=== PATIENT | male | born 1940 | race Caucasian/White ===

== ENCOUNTER 2021-03-03 15:12 | Emergency (ER) | payer OTHER, SELFPAY ==
--- NOTE | 2021-03-03 | ECG_ITS ---
Test Reason : CHEST PAIN Blood Pressure : / mmHG Vent. 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
--- NOTE | ~2021-03-03 | XR_ITS ---
EXAMINATION: XR CHEST CLINICAL INFORMATION: Chest pain. COMPARISON: Chest radiograph done on 11/20/2006. TECHNIQUE: 2 views of the chest were obtained. FINDINGS: Mild hyperinflated lung field is present bilaterally. No focal lung mass or airspace disease. Cardiac mediastinal silhouette is within normal limit. Multilevel moderate degenerative spondylosis. No evidence of any pleural effusion or pneumothorax. Overall no significant change. XR/XR chest 2V IMPRESSION: No acute pulmonary disease.
[2021-03-03 15:17] VITALS: BP 135/84; PULSE 115; RESP 18; O2SAT 98; BMI 32.1
--- NOTE | 2021-03-03 15:39 | PC.NURSE ---
pt has large patches of erythematous rash on legs, torso and back. He reports recent tick bite, states sx started after the bite and have been present for about a week. Also reports chills but no fever
[2021-03-03 15:40] VITALS: BP 135/84; PULSE 115; RESP 18; O2SAT 98
--- NOTE | 2021-03-03 15:47 | ED_ITS ---
IMPRESSION: No acute pulmonary disease. <Candida Dolan NP - Last Filed: 03/03/21 18:21> ECG Data Attestation: I personally reviewed and interpreted this ECG as follows: <Candida Dolan NP - Last Filed: 03/03/21 18:21> ECG interpretation date: 03/03/21 <Candida Dolan NP - Last Filed: 03/03/21 18:21> ECG interpretation time: 15:30 <Candida Dolan NP - Last Filed: 03/03/21 18:21> Interpretation: sinus tachycardia with a rate of 107, normal UT, normal QRS, normal QT <NITIN Lewis Last Filed: 03/03/21 18:21> Discharge Plan Discharge Clinical Impression: Acute Lyme disease with erythema migrans lesion 5 cm or greater in diameter <Candida Dolan NP - Last Filed: 03/03/21 18:21> Patient Disposition: Home, Self-Care <Candida Dolan NP - Last Filed: 03/03/21 18:21> Instructions: Lyme Disease (ED) <Candida Dolan NP - Last Filed: 03/03/21 18:21> Additional Instructions: we have tested due for Lyme disease as well as other tick-borne illnesse s. These tests take several days to come back. We will call you if they are positive. In the meantime start the antibiotics and you need to take this for the next 21 days. Follow up with your primary care doctor for repeat testing if your initial lyme test is negtive return for fever greater than 100.4, headache, neck pain or stiffness <Candida Dolan NP - Last Filed: 03/03/21 18:21> Prescriptions: New doxycycline monohydrate 100 mg capsule 100 mg PO BID 21 Days Qty: 42 RF: 0 <Candida Dolan NP - Last Filed: 03/03/21 18:21> Referrals: Physician,Nonstaff [Primary Care Provider] - 2 days <NITIN Lewis Last Filed: 03/03/21 18:21> Interventions: ED Discharge Assessment Last Done: 03/03/21 17:19 <Candida Dolan NP - Last Filed: 03/03/21 18:21> Discharge Date/Time: 03/03/21 17:20 <Canddia Dolan NP - Last Filed: 03/03/21 18:21> HPI - Skin/Abscess/Foreign Bdy General Chief complaint: Skin/Abscess/Foreign Body <Candida Dolan NP - Last Filed: 03/03/21 18:21> Stated complaint: ?Tick bite <Candida Dolan NP - Last Filed: 03/03/21 18:21> Time Seen by Provider: 03/03/21 15:33 <Candida Dolan NP - Last Filed: 03/03/21 18:21> Source: patient <Candida Dolan NP - Last Filed: 03/03/21 18:21> Mode of arrival: ambulatory <NITIN Lewis Last Filed: 03/03/21 18:21> Limitations: no limitations <NITIN Lewis Last Filed: 03/03/21 18:21> History of Present Illness HPI narrative: 81-year-old male with a past medical history of ead-[id number] diabetes here with complaints of rash for the last 3 days. The patient tells me about 1 week ago he was outside and noticed several ticks on him after coming inside. He did remove them but then noticed the next day what appeared to be a bite on his left hand. This has since resolved. For the last 3 days he has noticed a rash on his trunk and arms and legs. He has also had chills, fatigue, joint pain and body aches. He has also had some left-sided chest tightness with no shortness of breath or cough or fever or chills or dizziness or leg swelling or pain. 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 <NITIN Lewis Last Filed: 03/03/21 18:21> Related Data Home medications: Previous Rx's Medication Instructions Recorded doxycycline monohydrate 100 mg PO BID 21 Days #42 cap 03/03/21 <NITIN Lewis Last Filed: 03/03/21 18:21> Allergies/Adverse reactions: Allergies Allergy/AdvReac Type Severity Reaction Status Date / Time No Known Allergies [NKA] Allergy Unverified 05/17/20 15:03 <Candida Dolan NP - Last Filed: 03/03/21 18:21> Review of Systems Review of Systems: Yes all other systems are reviewed and are negative <Candida Dolan NP - Last Filed: 03/03/21 18:21> Constitutional: Constitutional: Reports no additional constitutional complaints, Reports body ache(s), Reports chills, Reports fatigue, Denies fever(s), Denies headache(s) and Denies weakness <Candida Dolan NP - Last Filed: 03/03/21 18:21> Eyes: Eyes: Reports no additional eye complaints and Denies change in vision <Candida Dolan NP - Last Filed: 03/03/21 18:21> ENT: Reports system reviewed and no additional complaints, except as documented, Denies dizziness, Denies headache(s), Denies nasal congestion, Denies nasal discharge and Denies neck pain <Candida Dolan NP - Last Filed: 03/03/21 18:21> Cardiovascular: Cardiovascular: Reports no additional cardiovascular complaints, Reports chest pain, Denies leg edema and Denies dyspnea <Candida Dolan NP - Last Filed: 03/03/21 18:21> Respiratory: Respiratory: Reports no additional respiratory complaints, Denies cough and Denies dyspnea <Candida Dolan NP - Last Filed: 03/03/21 18:21> Gastrointestinal: Gastrointestinal: Reports no additional gastrointestinal complaints, Denies abdominal pain, Denies diarrhea, Denies nausea and Denies vomiting <Candida Dolan NP - Last Filed: 03/03/21 18:21> Genitourinary: Genitourinary: Denies urinary incontinence <Candida Dolan NP - Last Filed: 03/03/21 18:21> Musculoskeletal: Musculoskeletal: Reports no additional musculoskeletal complaints, Denies back pain, Reports arthralgias, Denies joint swelling, Denies neck pain, Denies numbness and Denies tingling <Candida Dolan NP - Last Filed: 03/03/21 18:21> Integumentary/Breasts: Skin/Breast: Reports system reviewed and no additional complaints, except as docu and Reports rash <Candida Dolan NP - Last Filed: 03/03/21 18:21> Neurologic: Reports system reviewed and no additional complaints, except as documented, Denies Abnormal speech present, Denies dizziness, Denies headache(s), Denies numbness, Denies tingling and Denies weakness <Candida Dolan NP - Last Filed: 03/03/21 18:21> Endocrine: Endocrine: Reports fatigue <Candida Dolan NP - Last Filed: 03/03/21 18:21> PMFSH Past Medical History Attestation statement: The following information was validated with the patient. <Candida Dolan NP - Last Filed: 03/03/21 18:21> Source: old records reviewed and nursing notes reviewed <Candida Dolan NP - Last Filed: 03/03/21 18:21> Medical History: Medical History Diabetes <Candida Dolan NP - Last Filed: 03/03/21 18:21> Surgical History: Surgical History Hx of appendectomy <Candida Dolan NP - Last Filed: 03/03/21 18:21> Social History Social History: Social History Alcohol intake: never Patient Tobacco Use Status: Never used Tobacco Use of substances other than those prescribed or required for medical reasons: No Advance Directives: No Advance Directives Information Provided: Yes <Candida Dolan NP - Last Filed: 03/03/21 18:21> Physical Exam Vital Signs: Vital Signs: Last Vital Signs Pulse 88 03/03/21 16:52 Resp 16 03/03/21 16:52 BP 140/83 H 03/03/21 16:52 Pulse Ox 99 03/03/21 16:52 Body Mass Index 32.1 <Candida Dolan NP - Last Filed: 03/03/21 18:21> Vital Signs: Last Vital Signs Pulse 88 03/03/21 16:52 Resp 16 03/03/21 16:52 BP 140/83 H 03/03/21 16:52 Pulse Ox 99 03/03/21 16:52 Body Mass Index 32.1 <LENARD Flowers - Last Filed: 03/08/21 11:42> Const: General: cooperative, healthy appearing, comfortable and no acute distress <Candida Dolan NP - Last Filed: 03/03/21 18:21> Orientation/consciousness: patient oriented x3 <Candida Dolan NP - Last Filed: 03/03/21 18:21> Limitations: no limitations <Candida Dolan NP - Last Filed: 03/03/21 18:21> HENMT: Head: Yes normal to inspection <Candida Dolan NP - Last Filed: 03/03/21 18:21> Ears: hearing grossly normal bilaterally <Candida Dolan NP - Last Filed: 03/03/21 18:21> General nose exam: Normal external nose present <Candida Dolan NP - Last Filed: 03/03/21 18:21> Face and sinus: Yes normal facial exam <Candida Dolan NP - Last Filed: 03/03/21 18:21> Mouth: Normal oral and palatal mucosa present <Candida Dolan NP - Last Filed: 03/03/21 18:21> Throat: Yes posterior oropharynx normal <Candida Dolan NP - Last Filed: 03/03/21 18:21> Eyes: General: appearance normal, both eyes and all related structures <Candida Dolan NP - Last Filed: 03/03/21 18:21> Pupils: Equal, round and reactive pupils present <Candida Dolan NP - Last Filed: 03/03/21 18:21> Neck: Neck: Yes normal visual inspection, Yes full ROM, Yes no lymphadenopathy and Yes no meningeal signs <Candida Dolan NP - Last Filed: 03/03/21 18:21> Chest: Chest palpation & inspection: normal inspection of the chest <Candida Dolan NP - Last Filed: 03/03/21 18:21> Resp: Effort & Inspection: normal respiratory effort <Candida Dolan NP - Last Filed: 03/03/21 18:21> Auscultation: clear to auscultation bilaterally <Candida Dolan NP - Last Filed: 03/03/21 18:21> Cardio: Rate: regular rate <Candida Dolan NP - Last Filed: 03/03/21 18:21> Rhythm: regular rhythm <Candida Dolan NP - Last Filed: 03/03/21 18:21> Peripheral pulses: Peripheral pulses 2+ throughout <Candida Dolan NP - Last Filed: 03/03/21 18:21> GI: Inspection: Yes normal to inspection <Candida Dolan NP - Last Filed: 03/03/21 18:21> Palpation (GI): Soft to palpation and nontender <Candida Dolan NP - Last Filed: 03/03/21 18:21> Auscultation: normal bowel sounds <Candida Dolan NP - Last Filed: 03/03/21 18:21> Back/Spine/Pelvis: Thoracic/Lumbar Spine: thoracic and lumbar spine normal to inspection <Candida Dolan NP - Last Filed: 03/03/21 18:21> Skin: Other: To the dorsal left hand there is a single central bite with surrounding erythema c/w migrans <Candida Dolan NP - Last Filed: 03/03/21 18:21> General skin exam: no rashes or lesions noted <NITIN Lewis Last F iled: 03/03/21 18:21> Neuro: General: patient oriented x3, no meningeal signs, no focal motor deficits and normal sensation to monofilament <Candida Dolan NP - Last Filed: 03/03/21 18:21> Cranial nerves: Yes Equal, round and reactive pupils present <Candida Dolan NP - Last Filed: 03/03/21 18:21> Cognition (Neuro): normal cognition <Candida Dolan NP - Last Filed: 03/03/21 18:21> Speech: No Abnormal speech present <Candida Dolan NP - Last Filed: 03/03/21 18:21> Gait exam (Neuro): Normal gait present <Candida Dolan NP - Last Filed: 03/03/21 18:21> Motor exam (neuro): 5/5 motor strength present throughout <Candida Dolan NP - Last Filed: 03/03/21 18:21> Extrem: General: Yes normal to inspection <Candida Dolan NP - Last Filed: 03/03/21 18:21> Course Course Course Narrative: 81-year-old male with past medical history of NIDDM here with complaints of rash x 3 days in the setting of recent tick bite approximately 1 week ago. Also c/o atypical chest pain x 3 days. Rash c/w with erythema migrans. Will check labs including tick panel, troponin, EKG and CXR. - labs are consistent with a mild lymphocytopenia otherwise unremarkable. Tick panel is pending. Exam is consistent with erythema migrans. Will start with course of doxycycline times [address] Giles who visualized rash and agrees with plan of care. Troponin, EKG and chest x-ray unremarkable. Atypical chest pain with symptoms greater than 72 hours with an EKG which shows no ischemic changes and a negative troponin. Less likely ACS. Considered bradycardic rhythms secondary to lyme but heart rate has been 90-100 sinus rhythm to sinus tach with no abnormalities noted. Reviewed worrisome signs and symptoms of when to return to the emergency department. Comfortable discharge home. <Candida Dolan NP - Last Filed: 03/03/21 18:21> Reevaluation(s) Reevaluation #1: Called patient 03/08 @ 11:40 am with POSITIVE LYME results. He was prescribed appropriate therapy of 21 days of doxycycline. He has a follow up with his PCP on Thursday. <LENARD Flowers - Last Filed: 03/08/21 11:42> MDM - Skin/Abscess/Foreign Bdy MDM Narrative Medical decision making narrative: Lyme disease, ACS <Candida Dolan NP - Last Filed: 03/03/21 18:21> Medical Records Attestation: I reviewed the patient's medical records. <Candida Dolan NP - Last Filed: 03/03/21 18:21> Lab Data Attestation: I reviewed the patient's lab results. <Candida Dolan NP - Last Filed: 03/03/21 18:21> Result diagrams: : 03/03/21 16:03 03/03/21 16:03 <Candida Dolan NP - Last Filed: 03/03/21 18:21> Labs: Lab Results 03/03/21 03/03/21 03/03/21 Range/Units 16:03 16:03 16:03 WBC 7.6 (4.8-10.8) X10*3/uL RBC 4.34 L (4.60-5.80) X10*6/uL Hgb 11.9 L (14.0-18.0) g/dl Hct 36.2 L (42-52) % MCV 83.4 (80-98) fL MCH 27.4 (27.0-33.0) pg MCHC 32.9 (31.0-36.0) g/dl RDW 15.5 (11.0-16.0) % Plt Count 166 (160-400) X10*3/uL MPV 10.1 (9.4-12.4) fL Immature Gran % (Auto) 1.8 H (0.0-0.4) % Neut % (Auto) 82.1 H (45-73) % Lymph % (Auto) 6.8 L (20-40) % [place] % (Auto) 7.0 (2-11) % Eos % (Auto) 1.8 (0-4) % Baso % (Auto) 0.5 (0-2) % Lymph # (Auto) 0.5 L (1.2-4.9) X10*3/uL [place] # (Auto) 0.5 (0.1-1.2) X10*3/uL Eos # (Auto) 0.1 (0.0-0.4) X10*3/uL Baso # (Auto) 0.0 (0.0-0.2) X10*3/uL Abs Immat Gran (auto) 0.14 H (0.00-0.03) X10*3/uL Absolute Neuts (auto) 6.2 (2.0-8.3) X10*3/uL Absolute Nucleated RBC 0.000 (0.0-0.012) X10*3/uL Nucleated RBC % (auto) 0.0 (0.0-0.2) /100WBC Sodium 135 (135-145) mmol/L Potassium 4.0 (3.3-5.1) mmol/L Chloride 100 (96-108) mmol/L Carbon Dioxide 20 L (22-29) mmol/L Anion Gap 19 (12-20) BUN 8 L (9-16) mg/dL Creatinine 0.87 (0.5-1.4) mg/dL Estim Creat Clear Calc 80.4 Estimated GFR > 60 Random Glucose 230 H (60-115) mg/dL Calcium 9.2 (8.4-10.2) mg/dL Magnesium 1.7 (1.6-2.6) mg/dL Total Bilirubin 1.6 H (0.0-1.0) mg/dL Direct Bilirubin 0.7 H (0.0-0.5) mg/dL AST 18 (5-37) U/L ALT 45 H (0-40) U/L Alkaline Phosphatase 92 (39-117) U/L Troponin I High Sens < 3.5 (<3.5-35.0) ng/L Total Protein 6.7 (6.5-8.0) g/dL Albumin 3.9 (3.5-5.0) g/dL Lyme Screen IgG & IgM Lyme Progressive Test index Lyme IgG 18 kDa Band Lyme IgG 23 kDa Band Lyme IgG 28 kDa Band Lyme IgG 30 kDa Band Lyme IgG 45 kDa Band Lyme IgG 58 kDa Band Lyme IgG 66 kDa Band Lyme IgG 93 kDa Band Lyme IgG Ab (Immblot) (NEGATIVE) Lyme IgM 23 kDa Band Lyme IgM 39 kDa Band Lyme IgM 41 kDa Band Lyme IgM Interpretaton (NEGATIVE) 03/03/21 Range/Units 16:03 WBC (4.8-10.8) X10*3/uL RBC (4.60-5.80) X10*6/uL Hgb (14.0-18.0) g/dl Hct (42-52) % MCV (80-98) fL MCH (27.0-33.0) pg MCHC (31.0-36.0) g/dl RDW (11.0-16.0) % Plt Count (160-400) X10*3/uL MPV (9.4-12.4) fL Immature Gran % (Auto) (0.0-0.4) % Neut % (Auto) (45-73) % Lymph % (Auto) (20-40) % [place] % (Auto) (2-11) % Eos % (Auto) (0-4) % Baso % (Auto) (0-2) % Lymph # (Auto) (1.2-4.9) X10*3/uL [place] # (Auto) (0.1-1.2) X10*3/uL Eos # (Auto) (0.0-0.4) X10*3/uL Baso # (Auto) (0.0-0.2) X10*3/uL Abs Immat Gran (auto) (0.00-0.03) X10*3/uL Absolute Neuts (auto) (2.0-8.3) X10*3/uL Absolute Nucleated RBC (0.0-0.012) X10*3/uL Nucleated RBC % (auto) (0.0-0.2) /100WBC Sodium (135-145) mmol/L Potassium (3.3-5.1) mmol/L Chloride (96-108) mmol/L Carbon Dioxide (22-29) mmol/L Anion Gap (12-20) BUN (9-16) mg/dL Creatinine (0.5-1.4) mg/dL Estim Creat Clear Calc Estimated GFR Random Glucose (60-115) mg/dL Calcium (8.4-10.2) mg/dL Magnesium (1.6-2.6) mg/dL Total Bilirubin (0.0-1.0) mg/dL Direct Bilirubin (0.0-0.5) mg/dL AST (5-37) U/L ALT (0-40) U/L Alkaline Phosphatase (39-117) U/L Troponin I High Sens (<3.5-35.0) ng/L Total Protein (6.5-8.0) g/dL Albumin (3.5-5.0) g/dL Lyme Screen IgG & IgM POSITIVE Lyme Progressive Test 8.20 H index Lyme IgG 18 kDa Band NON-REACTIVE Lyme IgG 23 kDa Band NON-REACTIVE Lyme IgG 28 kDa Band NON-REACTIVE Lyme IgG 30 kDa Band NON-REACTIVE Lyme IgG 45 kDa Band NON-REACTIVE Lyme IgG 58 kDa Band NON-REACTIVE Lyme IgG 66 kDa Band NON-REACTIVE Lyme IgG 93 kDa Band NON-REACTIVE Lyme IgG Ab (Immblot) NEGATIVE (NEGATIVE) Lyme IgM 23 kDa Band REACTIVE A Lyme IgM 39 kDa Band REACTIVE A Lyme IgM 41 kDa Band REACTIVE A Lyme IgM Interpretaton POSITIVE A (NEGATIVE) <Candida Dolan, FREELANCE MAKEUP ARTIST - Last Filed: 03/03/21 18:21> Lab Results 03/03/21 03/03/21 03/03/21 Range/Units 16:03 16:03 16:03 WBC 7.6 (4.8-10.8) X10*3/uL RBC 4.34 L (4.60-5.80) X10*6/uL Hgb 11.9 L (14.0-18.0) g/dl Hct 36.2 L (42-52) % MCV 83.4 (80-98) fL MCH 27.4 (27.0-33.0) pg MCHC 32.9 (31.0-36.0) g/dl RDW 15.5 (11.0-16.0) % Plt Count 166 (160-400) X10*3/uL MPV 10.1 (9.4-12.4) fL Immature Gran % (Auto) 1.8 H (0.0-0.4) % Neut % (Auto) 82.1 H (45-73) % Lymph % (Auto) 6.8 L (20-40) % [place] % (Auto) 7.0 (2-11) % Eos % (Auto) 1.8 (0-4) % Baso % (Auto) 0.5 (0-2) % Lymph # (Auto) 0.5 L (1.2-4.9) X10*3/uL [place] # (Auto) 0.5 (0.1-1.2) X10*3/uL Eos # (Auto) 0.1 (0.0-0.4) X10*3/uL Baso # (Auto) 0.0 (0.0-0.2) X10*3/uL Abs Immat Gran (auto) 0.14 H (0.00-0.03) X10*3/uL Absolute Neuts (auto) 6.2 (2.0-8.3) X10*3/uL Absolute Nucleated RBC 0.000 (0.0-0.012) X10*3/uL Nucleated RBC % (auto) 0.0 (0.0-0.2) /100WBC Sodium 135 (135-145) mmol/L Potassium 4.0 (3.3-5.1) mmol/L Chloride 100 (96-108) mmol/L Carbon Dioxide 20 L (22-29) mmol/L Anion Gap 19 (12-20) BUN 8 L (9-16) mg/dL Creatinine 0.87 (0.5-1.4) mg/dL Estim Creat Clear Calc 80.4 Estimated GFR > 60 Random Glucose 230 H (60-115) mg/dL Calcium 9.2 (8.4-10.2) mg/dL Magnesium 1.7 (1.6-2.6) mg/dL Total Bilirubin 1.6 H (0.0-1.0) mg/dL Direct Bilirubin 0.7 H (0.0-0.5) mg/dL AST 18 (5-37) U/L ALT 45 H (0-40) U/L Alkaline Phosphatase 92 (39-117) U/L Troponin I High Sens < 3.5 (<3.5-35.0) ng/L Total Protein 6.7 (6.5-8.0) g/dL Albumin 3.9 (3.5-5.0) g/dL Lyme Screen IgG & IgM Lyme Progressive Test index Lyme IgG 18 kDa Band Lyme IgG 23 kDa Band Lyme IgG 28 kDa Band Lyme IgG 30 kDa Band Lyme IgG 45 kDa Band Lyme IgG 58 kDa Band Lyme IgG 66 kDa Band Lyme IgG 93 kDa Band Lyme IgG Ab (Immblot) (NEGATIVE) Lyme IgM 23 kDa Band Lyme IgM 39 kDa Band Lyme IgM 41 kDa Band Lyme IgM Interpretaton (NEGATIVE) 03/03/21 Range/Units 16:03 WBC (4.8-10.8) X10*3/uL RBC (4.60-5.80) X10*6/uL Hgb (14.0-18.0) g/dl Hct (42-52) % MCV (80-98) fL MCH (27.0-33.0) pg MCHC (31.0-36.0) g/dl RDW (11.0-16.0) % Plt Count (160-400) X10*3/uL MPV (9.4-12.4) fL Immature Gran % (Auto) (0.0-0.4) % Neut % (Auto) (45-73) % Lymph % (Auto) (20-40) % [place] % (Auto) (2-11) % Eos % (Auto) (0-4) % Baso % (Auto) (0-2) % Lymph # (Auto) (1.2-4.9) X10*3/uL [place] # (Auto) (0.1-1.2) X10*3/uL Eos # (Auto) (0.0-0.4) X10*3/uL Baso # (Auto) (0.0-0.2) X10*3/uL Abs Immat Gran (auto) (0.00-0.03) X10*3/uL Absolute Neuts (auto) (2.0-8.3) X10*3/uL Absolute Nucleated RBC (0.0-0.012) X10*3/uL Nucleated RBC % (auto) (0.0-0.2) /100WBC Sodium (135-145) mmol/L Potassium (3.3-5.1) mmol/L Chloride (96-108) mmol/L Carbon Dioxide (22-29) mmol/L Anion Gap (12-20) BUN (9-16) mg/dL Creatinine (0.5-1.4) mg/dL Estim Creat Clear Calc Estimated GFR Random Glucose (60-115) mg/dL Calcium (8.4-10.2) mg/dL Magnesium (1.6-2.6) mg/dL Total Bilirubin (0.0-1.0) mg/dL Direct Bilirubin (0.0-0.5) mg/dL AST (5-37) U/L ALT (0-40) U/L Alkaline Phosphatase (39-117) U/L Troponin I High Sens (<3.5-35.0) ng/L Total Protein (6.5-8.0) g/dL Albumin (3.5-5.0) g/dL Lyme Screen IgG & IgM POSITIVE Lyme Progressive Test 8.20 H index Lyme IgG 18 kDa Band NON-REACTIVE Lyme IgG 23 kDa Band NON-REACTIVE Lyme IgG 28 kDa Band NON-REACTIVE Lyme IgG 30 kDa Band NON-REACTIVE Lyme IgG 45 kDa Band NON-REACTIVE Lyme IgG 58 kDa Band NON-REACTIVE Lyme IgG 66 kDa Band NON-REACTIVE Lyme IgG 93 kDa Band NON-REACTIVE Lyme IgG Ab (Immblot) NEGATIVE (NEGATIVE) Lyme IgM 23 kDa Band REACTIVE A Lyme IgM 39 kDa Band REACTIVE A Lyme IgM 41 kDa Band REACTIVE A Lyme IgM Interpretaton POSITIVE A (NEGATIVE) <LENARD Flowers - Last Filed: 03/08/21 11:42> Imaging Data Chest x-ray: Attestation: I personally reviewed and interpreted this imaging study as follows: <Candida Dolan NP - Last Filed: 03/03/21 18:21> Radiologist's impression: [address] [id number] ReportSigned Patient: Dawit Wang FMR#: [id number]: [id number]/Sex: 81 / MADM Date: 03/03/21Loc: HO.EDAttending Dr: Ordering Physician: CANDIDA DOLAN NP Date of Service: 03/03/21 Procedure(s): XR chest 2V Accession Number(s): [id number] cc: CANDIDA DOLAN NP~ EXAMINATION: XR CHEST CLINICAL INFORMATION: Chest pain. COMPARISON: Chest radiograph done on 11/20/2006. TECHNIQUE: 2 views of the chest were obtained. FINDINGS: Mild hyperinflated lung field is present bilaterally. No focal lung mass or airspace disease. Cardiac mediastinal silhouette is within normal limit. Multilevel moderate degenerative spondylosis. No evidence of any pleural effusion or pneumothorax. Overall no significant change. XR/XR chest 2V
[2021-03-03 16:09] LABS: MANUAL DIFF FLAG NO
[2021-03-03 16:11] LABS: Basophils Percent Auto 0.5 % (0-2); Eosinophils Absolute Auto 0.1 X10*3/uL (0.0-0.4); Eosinophils Percent Auto 1.8 % (0-4); Hematocrit 36.2 % (42-52); Hemoglobin 11.9 g/dl (14.0-18.0); Imm Gran Abs Auto 0.14 X10*3/uL (0.00-0.03); Imm Gran Pct Auto 1.8 % (0.0-0.4); Lymphocytes Absolute Auto 0.5 X10*3/uL (1.2-4.9); Lymphocytes Percent Auto 6.8 % (20-40); Mean Corpuscular HGB Conc 32.9 g/dl (31.0-36.0); Mean Corpuscular Hemoglobin 27.4 pg (27.0-33.0); Mean Corpuscular Volume 83.4 fL (80-98); Mean Platelet Volume 10.1 fL (9.4-12.4); Monocytes Absolute Auto 0.5 X10*3/uL (0.1-1.2); Neutrophils Absolute Auto 6.2 X10*3/uL (2.0-8.3); Neutrophils Percent Auto 82.1 % (45-73); Platelet Count 166 X10*3/uL (160-400); Red Blood Count 4.34 X10*6/uL (4.60-5.80); Red Cell Distribution Width 15.5 % (11.0-16.0); White Blood Count 7.6 X10*3/uL (4.8-10.8)
[2021-03-03 16:37] LABS: Alanine Aminotransferase 45 U/L (0-40); Albumin Level 3.9 g/dL (3.5-5.0); Alkaline Phosphatase 92 U/L (39-117); Anion Gap 19 (12-20); Aspartate Amino Transferase 18 U/L (5-37); Bilirubin Direct 0.7 mg/dL (0.0-0.5); Bilirubin Total 1.6 mg/dL (0.0-1.0); Blood Urea Nitrogen 8 mg/dL (9-16); Calcium 9.2 mg/dL (8.4-10.2); Carbon Dioxide 20 mmol/L (22-29); Chloride 100 mmol/L (96-108); Creatinine Clr Calc Pharmacy 80.4; Estimated Glomerular Filt Rate > 60; Glucose Random 230 mg/dL (60-115); Magnesium 1.7 mg/dL (1.6-2.6); Sodium 135 mmol/L (135-145); Total Protein 6.7 g/dL (6.5-8.0); Troponin-I High Sensitivity < 3.5 ng/L (<3.5-35.0)
[2021-03-03 16:52] VITALS: BP 140/83; PULSE 88; RESP 16; O2SAT 99
[2021-03-06 18:16] LABS: 18 KD (IgG) Band NON-REACTIVE; 23 KD (IgG) Band NON-REACTIVE; 23 KD (IgM) Band REACTIVE; 28 KD (IgG) Band NON-REACTIVE; 30 KD (IgG) Band NON-REACTIVE; 39 KD (IgM) Band REACTIVE; 41 KD (IgM) Band REACTIVE; 45 KD (IgG) Band NON-REACTIVE; 58 KD (IgG) Band NON-REACTIVE; 66 KD (IgG) Band NON-REACTIVE; 93 KD (IgG) Band NON-REACTIVE; Lyme IgG Blot Interp NEGATIVE (NEGATIVE); Lyme IgM Blot Interp POSITIVE (NEGATIVE)
[2021-03-07 08:55] LABS: Lyme Abs Screen POSITIVE
[2021-03-19 01:16] LABS: A. Phagocytophilum Ab IgG <1:64 (<1:64); A. Phagocytophilum Ab IgM <1:20 (<1:20); E. Chaffeensis Ab IgG <1:64 (<1:64); E. Chaffeensis Ab IgM <1:20 (<1:20)
== END 2021-03-03 17:20 | disposition home or self-care (01) ==
PROVIDERS: Nurse Practitioner Family; Emergency Provider Emergency Medicine
DX: A69.20 Lyme disease, unspecified (principal); D72.810 Lymphocytopenia; E11.9 Type 2 diabetes mellitus without complications
CPT/HCPCS: 36415; 71046; 80048; 80076; 83735; 84484; 85025; 86617; 86618; 86666; 93005; 99283; 99284

== ENCOUNTER 2025-04-26 13:24 | Outpatient (AMB) | payer OTHER, MEDICARE, SELFPAY ==
[2025-04-26 13:32] VITALS: BP 114/66; PULSE 100; O2SAT 97; BMI 31.2
--- NOTE | 2025-04-26 13:32 | A.OFFVIS_ITS ---
Vital Signs 04/26/25 13:32 Height 5 ft 11 in Weight 224 lb BMI 31.2 BP 114/66 Blood Pressure Location Lt brachial Position Sitting Pulse 100 Pulse Source Pulse Oximeter Pulse Oximetry (%) 97 Oxygen Delivery Method Room Air Intake Visit Reasons: Full incontinence of feces Intake Note: New pt for eval of fecal incontinence. Last colo 2016 per referral. CC: C.O. frequent diarrhea, fecal incontinence, and intermittent + generalized abd pain. Pt reports acute onset over the last few months which seems idiopathic in nature. No additional sx or concerns at this time. Pt reports hx of polyps with last colo in 2015. 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 Patient was sent to us by his PCP. Patient reports occasional loose stools. Patient states that it happens without any warning. About couple times a month or so. Patient reports that he normally has a bowel movement every day or every couple days. Usually large formed brown stool. Patient denies melena, hematochezia, unintentional weight loss or ribbon like stools. Reports last colonoscopy over 10 years ago benign polyps found. He believes his last colonoscopy was done at [facility] in [place]. Patient is not on any particular diet. He mainly eats everything. Loves pizza, pasta. Patient is not eating much fruits or vegetables. Does not take any fiber supplements or eat food high in fiber. Patient denies any mucus in his stools. Reports lot of gas and bloating. Reports bloating and occasional cramping in the left lower quadrant. Patient denies any nausea or vomiting. Denies dyspepsia, dysphagia or odynophagia. [facility] Medical History (Updated 04/26/25 @ 14:03 by Madyson Borden [facility]) HTN (hypertension) Hyperlipidemia Diabetes Surgical History History of colonoscopy Hx of appendectomy Social History Alcohol intake: never Patient Tobacco Use Status: Never used Tobacco Review of Systems Const Denies weight gain and Denies weight loss ENT Reports no additional complaints, Denies dysphagia and Denies odynophagia Card Reports no additional complaints Resp Reports no additional complaints GI Denies abdominal pain, Denies belching, Denies melena, Denies bloating, Denies change in bowel habits, Denies dysphagia, Denies excessive flatus, Denies dyspepsia, Denies heartburn, Denies diarrhea, Reports loose stools, Denies nausea, Denies odynophagia and Denies vomiting Reports no additional complaints Musc Reports no additional complaints Neuro Reports no additional complaints Psych Reports no additional complaints Endo Reports no additional complaints Physical Exam Const General: healthy appearing and no acute distress Nutritional Appearance: obese Orientation/consciousness: patient oriented x3 Resp Effort & Inspection: normal respiratory effort, able to speak in complete sentences, no tracheal deviation and symmetric chest movement Auscultation: clear to auscultation bilaterally Cardio Rate: regular rate GI Inspection: Yes normal to inspection, No distended and Yes obesity Palpation (GI): Soft to palpation, not firm, nontender and No hepatosplenomegaly present Auscultation: normal bowel sounds General: Yes no CVA tenderness Back/Spine/Pelvis Back: no CVA tenderness Skin General skin exam: elasticity normal, turgor normal and dry skin Neuro General: patient oriented x3 Psych Appearance: grossly normal Mental Status: mental status grossly normal Assessment & Plan Assessment & Plan (1) Diarrhea: Code(s): R19.7 - Diarrhea, unspecified Qualifiers: Diarrhea type: functional diarrhea Qualified Code(s): K59.1 - Functional diarrhea (2) Postprandial abdominal bloating: Code(s): R14.0 - Abdominal distension (gaseous) Plan Patient reports incontinence of stool otherwise normal bowel movements. Patient will increase fiber intake. Recommended Metamucil with pre and probiotics. Will rule out malabsorption issues, inflammatory processes, celiac. Will check stool study. Will get records from his last colonoscopy. Will hold off on sending him go colonoscopy at this point unless his symptoms will get worse. Currently accidents couple times a month. Patient will control better with fiber and becoming more regular. Encouraged patient not to hold to have a bowel movement. He will follow-up in the office in 3 months. He will call us if he will have worsening symptoms. Patient is agreeable to plan of care and verbalizes understanding of instructions. He was given the opportunity to ask questions and all questions answered. Thank you for allowing me to participate in his care Orders: Orders Calprotectin, Fecal Today R15.9 - Full incontinence of feces Transglutaminase IgA Today R10.9 - Unspecified abdominal pain Fecal Fat Qualitative Today R19.7 - Diarrhea, unspecified Vitamin D 25-OH (D2 and D3) Today E55.9 - Vitamin D deficiency, unspecified Vitamin B12 and Folate Today R19.7 - Diarrhea, unspecified C Reactive Protein Today K58.9 - Irritable bowel syndrome, unspecified Ova and Parasite Today R19.7 - Diarrhea, unspecified GI Panel Today R19.7 - Diarrhea, unspecified Coding Level of Care Code New Pt Level 3 (84542) Diagnoses Functional diarrhea K59.1 Diarrhea type: functional diarrhea Postprandial abdominal bloating R14.0 Time Spent (min) 40 Comment 30 minutes spent with patient and additional 10 minutes spent reviewing his records
--- OUTSIDE RECORDS SUMMARY | 2025-04-26 14:14 | XMS_ITS | Clinical Summary ---
Author Organization [facility] Address [address] [place] [address] Phone Care Team Providers Care Electron Tube Assembler Name Role Phone Physician, Pcp Unknown Primary Care Provider Heydi vailable Allergies No known active allergies Social History Tobacco Use Types Packs/Day Years Used Date Smoking Tobacco: Never Assessed Sex and Gender Information Value Date Recorded Sex Assigned at Not on file Legal Sex Male 6:30 PM EDT Gender Identity Not on file Sexual Orientation Not on file Last Filed Vital Signs Vital Sign Reading Time Taken Comments Blood Pressure 127/54 01/03/2025 6:35 PM EDT Pulse 66 01/03/2025 6:35 PM EDT Temperature 36.7 C (98.1 F) 01/03/2025 6:35 PM EDT Respiratory Rate 18 01/03/2025 6:35 PM EDT Oxygen Saturation 96% 01/03/2025 6:35 PM EDT Inhaled Oxygen Concentration - - Weight 104 kg (230 lb) 01/03/2025 6:35 PM EDT Height 180.3 cm (5' 11 ) 01/03/2025 6:35 PM EDT Body Mass Index 32.08 01/03/2025 6:35 PM EDT Plan of Treatment Health Maintenance Due Date Last Done Comments Diabetes: Annual Foot Exam 1950 Diabetes: Annual Retina Eye Exam 1950 RSV Immunization Adult Patients (1 - 1-dose 75+ series) 2014 Depression Screening 08/31/2024 Cholesterol Screening (Lipid Panel) 01/04/2025 Diabetes: Blood Sugar Control Test (HGBA1C) 01/04/2025 Falls Risk Assessment 01/04/2025 Hypertension/CHF/CAD Annual BMP Blood Test 01/04/2025 Medicare Annual Wellness Visit 01/04/2025 Social Influencers of Health Screening 01/04/2025 COVID-19 Vaccine () 02/13/2025 08/15/2024, 10/31/2022, 08/03/2021, Additional history exists Influenza Vaccine (#1) 2025 , 07/20/2023, 06/04/2022, Additional history exists DTaP,Tdap,and Td Vaccines (4 - Td or Tdap) 12/06/2033 12/07/2023, 09/23/2013, 08/31/2009 Zoster Vaccines Completed 07/15/2021, 05/02, 03/21/2013 Pneumococcal Vaccine: 50+ Years Completed 04/06/2024, 12/04/2014, 10/08/2009, Additional history exists HIB Vaccines Aged Out No longer eligi ble based on patient's age to complete this topic HPV Vaccines Aged Out No longer eligi ble based on patient's age to complete this topic Hepatitis A Vaccines Aged Out No long er eligible based on patient's age to complete this topic Hepatitis B Vaccines Aged Out No long er eligible based on patient's age to complete this topic IPV Vaccines Aged Out No longer eligi ble based on patient's age to complete this topic MMR Vaccines Aged Out No longer eligi ble based on patient's age to complete this topic Meningococcal ACWY Vaccine Aged Out N o longer eligible based on patient's age to complete this topic Meningococcal B Vaccine Aged Out No l onger eligible based on patient's age to complete this topic RSV Immunization Patients Under 20 months Aged Out No longer eligible based on patient's age to complete this topic Varicella Vaccines Aged Out No longer eligible based on patient's age to complete this topic Insurance [employer] MEDICARE Care Teams Electron Tube Assembler Relationship Specialty Start Date End Date Physician, Pcp Unknown PCP - General 01/03/25
--- OUTSIDE RECORDS SUMMARY | 2025-04-26 14:14 | XMS_ITS | Patient Health Record ---
Author Organization [facility] Address [address] [place] [address] Care Team Providers Care Facilities Manager Name Role Phone Juan Babcock Jr Reason For Referral No Information Plan Of Treatment No Information
== END 2025-04-26 14:24 | disposition home or self-care (01) ==
PROVIDERS: PCP Internal Medicine; Visit Provider Nurse Practitioner Family
DX: K59.1 Functional diarrhea (principal); R14.0 Abdominal distension (gaseous)
CPT/HCPCS: 99203

== ENCOUNTER 2025-04-26 13:24 | Outpatient (REF) | payer OTHER, SELFPAY ==
[2025-04-26 16:11] LABS: Folate 10.2 ng/mL (> or = 4.0); Vitamin B12 313 pg/mL (200-900)
[2025-04-30 17:04] LABS: Vitamin D 25-OH, D2 <4 ng/mL; Vitamin D 25-OH, D3 25 ng/mL; Vitamin D 25-OH, Total 25 ng/mL (30-100)
== END 2025-04-26 13:25 | disposition home or self-care (01) ==
LOC: HO.LAB 13:24
PROVIDERS: PCP Internal Medicine; Visit Provider Nurse Practitioner Family
DX: K58.9 Irritable bowel syndrome, unspecified (principal); K59.1 Functional diarrhea; E55.9 Vitamin D deficiency, unspecified; R14.0 Abdominal distension (gaseous); R10.84 Generalized abdominal pain
CPT/HCPCS: 36415; 82306; 82607; 82746; 86140; 86364; 99202

== ENCOUNTER 2025-05-02 14:38 | Outpatient (REF) | payer OTHER, SELFPAY ==
--- OUTSIDE RECORDS SUMMARY | 2025-05-02 15:57 | XMS_ITS | Clinical Summary ---
Author Organization [facility] Address [address] [place] [address] Phone Care Team Providers Care Log Sawyer Name Role Phone Physician, Pcp Unknown Primary [...] of Health Screening 01/04/2025 COVID-19 Vaccine () 05/01/2025 08/15/2024, 10/31/2022, 08/03/2021, Additional history exists Influenza [...] topic Insurance [employer] MEDICARE Care Teams Log Sawyer Relationship Specialty Start Date End Date Physician, Pcp Unknown PCP - General 01/03/25
[2025-05-08 16:03] LABS: Calprotectin, Fecal 31 mcg/g
== END 2025-05-02 14:39 | disposition home or self-care (01) ==
LOC: HO.LNP 14:38
PROVIDERS: Visit Provider Nurse Practitioner Family
DX: R15.9 Full incontinence of feces (principal); R19.7 Diarrhea, unspecified
CPT/HCPCS: 82705; 83993

== ENCOUNTER 2025-05-22 21:08 | Emergency (ER) | payer OTHER, SELFPAY ==
--- NOTE | ~2025-05-22 | XR_ITS ---
CLINICAL HISTORY: cough rib pain 2 view chest x-ray Comparison: None provided Findings: No consolidation or pleural effusion. Mild bilateral parenchymal scarring. Normal size heart. No acute fracture. IMPRESSION: 1. No acute findings. No displaced rib fracture. This document has been electronically signed by: Eva Gold MD on 05/22/2025 23:24:26
[2025-05-22 21:16] VITALS: BP 119/62; PULSE 76; RESP 18; TEMP 36.4; O2SAT 97; BMI 31.4
[2025-05-22 22:00] LABS: IDNOW Serial# 152EDE1D; Influenza B2 Negative (Negative)
[2025-05-22 22:01] LABS: COVID-19 Test Negative (Negative); IDNOW Serial# 16C4AD1C
--- NOTE | 2025-05-22 23:45 | ECG_ITS ---
Test Reason : CHEST PAIN Blood Pressure : */* mmHG Vent. Rate : 58 BPM Atrial Rate : * BPM P-R Int : * ms QRS Dur : 94 ms QT Int : 408 ms P-R-T Axes : * -14 49 degrees QTcB Int : 400 ms Atrial fibrillation with slow ventricular response Abnormal ECG When compared with ECG of 03-Mar-2021 15:30, Atrial fibrillation has replaced Sinus rhythm Vent. rate has decreased by 49 bpm Referred By: Montserrat Mcgee Electronically Signed By: Mayank Hwang
[2025-05-22 23:46] VITALS: BP 111/63; PULSE 62; RESP 16; TEMP 36.4; O2SAT 95
--- OUTSIDE RECORDS SUMMARY | 2025-05-22 23:52 | XMS_ITS | Clinical Summary ---
Author Organization [facility] Address [address] [place] [address] Phone Care Team Providers Care Novelty Printing Machine Operator Name Role Phone Physician, Pcp Unknown Primary [...] topic Insurance [employer] MEDICARE Care Teams Novelty Printing Machine Operator Relationship Specialty Start Date End Date Physician, Pcp Unknown PCP - General 01/03/25
--- OUTSIDE RECORDS SUMMARY | 2025-05-22 23:52 | XMS_ITS | Patient Health Record ---
Author Organization [facility] Address [address] [place] [address] Care Team Providers Care Research Programmer Name Role Phone Juan Babcock Jr [phone] Reason For Referral No Information Plan Of Treatment No Information
--- NOTE | 2025-05-22 23:55 | PC.NURSE ---
pt has had back pain radiating to ribs for a week, back pain for years. denies injury, playing [employer] hole last week when pain gt a lot wore. takes Tylenol with no relief.
--- NOTE | 2025-05-23 00:30 | ED.BACK ---
HPI - Back Pain/Injury General Chief Complaint: Back Pain/Injury Stated Complaint: SORE RIBS Time Seen by Provider: 05/22/25 23:26 Source: patient and old records reviewed Mode of arrival: ambulatory Limitations: no limitations History of Present Illness ED Provider: Dr. Montserrat Mcgee HPI Narrative: 85-year-old male with history of diabetes, hypertension, hyperlipidemia presenting with right mid to low back pain that began about a week ago. Admits that he was ?throwing jaeger bags in a game of corn hole? and thinks that he might have overdone it. No reported fever. Denies cough or cold-type symptoms. Denies nausea, vomiting, diarrhea or other bowel complaints. Does have a history of constipation which he is taking fiber additives 4. He sees a hospital education coordinator for this. Had been feeling well otherwise. Patient is remarkably active for his age and is still driving. Has been taking Tylenol for pain without real relief. No skin rashes. Related Data Home Medications ?Medication ?Instructions ?Recorded ?Confirmed aspirin 81 mg tablet 81 mg PO DAILY 04/20/25 atorvastatin 80 mg tablet (Lipitor) 80 mg PO BEDTIME 04/20/25 empagliflozin 25 mg tablet 25 mg PO DAILY 04/20/25 (Jardiance) lisinopril 20 mg tablet 20 mg PO DAILY 04/20/25 metoprolol succinate 100 mg 100 mg PO DAILY 04/20/25 tablet,extended release 24 hr Previous Rx's ?Medication ?Instructions ?Recorded gabapentin 300 mg capsule 300 mg PO TID #14 caps 05/23/25 Allergies Allergy/AdvReac Type Severity Reaction Status Date / Time metformin AdvReac Unknown Unknown Verified 05/22/25 21:17 Review of Systems Review of Systems: as per HPI, full review of systems performed and negative but for the above mentioned pertinent positives and negatives. [facility] Past Medical History Medical History HTN (hypertension) Hyperlipidemia Diabetes Surgical History History of colonoscopy Hx of appendectomy Social History Social History Alcohol intake: never Patient Tobacco Use Status: Never used Tobacco Advance Directives: No Advance Directives Information Provided: Yes Do you have a plan to hurt others: No Plan Physical Exam Exam: Exam: GENERAL: Chronically ill-appearing, conversant, no acute distress. SKIN: Normal skin color for ethnicity, warm, dry, no rashes noted. HEENT: Normocephalic, atraumatic, no stridor, posterior oropharynx nonerythematous, EOMI. NECK: Soft, supple, full ROM, midline structures nontender, no step-offs, no deformities, no lymphadenopathy. CHEST: Heart regular rate and rhythm, no murmurs, symmetric chest rise and fall, right posterior ribs 10 through 12 tenderness to palpation, no crepitus, no midline spine tenderness, no skin rashes, no evidence of trauma. PULMONARY: Clear to auscultation bilaterally, no labored breathing, no wheezes/rhales/ rhonchi. ABDOMINAL: Soft, nondistended, nontender, positive bowel sounds in all quadrants. : Deferred. MUSCULOSKELETAL: Normal tone, full range of motion, no deformities, no peripheral edema. NEURO: Alert and oriented to person, CN II through XII intact, no focal neurologic deficits. PSYCHIATRIC: Flat affect, fluid speech, appropriate demeanor. Vital Signs: Vital Signs: Last Vital Signs Temp 97.5 F 05/22/25 23:46 Pulse 62 05/22/25 23:46 Resp 16 05/22/25 23:46 BP 111/63 05/22/25 23:46 Pulse Ox 95 05/22/25 23:46 O2 Del Method Room Air 05/22/25 23:46 BMI result Body Mass Index 31.4 Medical Decision Making Medical Decision Making MDM Narrative: Patient presents today with a chief complaint of back pain. Differential diagnosis includes musculoskeletal pain, osseous abnormality such as fracture or tumor, infection, spinal cord pathology such as cauda equina syndrome, ligamentous or disc pathology, vascular abnormalities, among many others. I reviewed the list of red flag features such as trauma, weight loss, abnormal neurological findings such as weakness, bowel or bladder incontinence, saddle paresthesia, as well as history of cancer, IV drug abuse, fever, to list a few. Based on history and physical examination, workup was initiated and results were reviewed. X-ray does not show evidence of fracture. Patient has point tenderness on ribs 10 through 12 on the right lateral aspect of the ribs. No crepitus. No chest pain or difficulty breathing associated with this pain. His EKG is nonischemic. Discussed importance of follow up with primary care as well as precautions while using gabapentin for nerve pain. He has been using Tylenol and Lidoderm patches without relief. He has close follow up with his primary care doctor. Discharged home in stable and improved condition. Differential Diagnosis Differential Diagnoses: The differential diagnosis associated with the presentation includes (As above) Admission/Observation Consideration of admission/observation: Escalation of care including admission/observation considered Lab Data MDM Lab Attestation statement: I reviewed the patient's lab results. Labs: Lab Results 05/22/25 Range/Units 21:37 COVID-19 (JEREMIAS) Negative (Negative) COVID-19 Clin Com See Note Influenza Type A (KATHARINE) Negative (Negative) Influenza Type B (KATHARINE) Negative (Negative) Influenza A & B Note See Note Independent Interpretation I performed an independent interpretation of an: EKG Interpretation: My independent interpretation of the ECG reveals atrial fibrillation with a rate of 58, leftward axis, normal intervals, no ST elevations or depressions to suggest ischemic changes, no previous for comparison Radiology Impression Discussion of test interpretation with radiology: I have reviewed the radiologist's reading. Prescription Management I considered prescription management with: Pain Medication Chronic Conditions Patient?s care impacted by: Diabetes and Hypertension Social Determinants Patient?s care significantly limited by Social Determinants of Health including: Problems related to primary support group Discharge Plan Discharge Clinical Impression: Acute thoracic myofascial strain Patient Disposition: Home, Self-Care Instructions: Muscle Strain (ED) Additional Instructions: Please follow-up with your primary care doctor within the next 24 hours. Give the office a call to let them know you have been in the emergency department for evaluation of back pain. Return to the emergency department immediately if you develop any new or worsening symptoms including: Chest pain, difficulty breathing, fevers greater than 100?, cough with green or brown sputum production, any new symptom that concerns you. Call 911 with any medical emergency. Do not take gabapentin if you are going to drive. This medication can make you drowsy. Prescriptions: New gabapentin 300 mg capsule 300 mg PO TID Qty: 14 0RF No Action atorvastatin [Lipitor] 80 mg tablet 80 mg PO BEDTIME lisinopril 20 mg tablet 20 mg PO DAILY metoprolol succinate 100 mg tablet extended release 24 hr 100 mg PO DAILY aspirin 81 mg tablet 81 mg PO DAILY Jardiance 25 mg tablet 25 mg PO DAILY Print Language: Macedonian
[2025-05-23] MEDS: Lidocaine 4 % Patch ADH..PATCH 1 PATCH TRANSDERMA (00:37)
[2025-05-23 00:38] VITALS: BP 111/63; PULSE 62; RESP 16; TEMP 36.4; O2SAT 95
--- NOTE | 2025-05-23 00:38 | PC.NURSE ---
pt medicated per MAR.
== END 2025-05-23 00:39 | disposition home or self-care (01) ==
PROVIDERS: Emergency Provider Emergency Medicine; PCP Internal Medicine
DX: S39.012A Strain of muscle, fascia and tendon of lower back, initial encounter (principal); I10 Essential (primary) hypertension; E11.8 Type 2 diabetes mellitus with unspecified complications; I48.91 Unspecified atrial fibrillation; X50.1XXA Overexertion from prolonged static or awkward postures, initial encounter; Y93.73 Activity, racquet and hand sports; Y92.89 Other specified places as the place of occurrence of the external cause; Y99.8 Other external cause status; Z79.899 Other long term (current) drug therapy
CPT/HCPCS: 71046; 87502; 87635; 93005; 99283; 99284

== ENCOUNTER → 2025-05-22 22:54 | Outpatient (BNV) | payer OTHER, SELFPAY | PROVIDERS: Emergency Provider Emergency Medicine; PCP Internal Medicine; Visit Provider Student in an Organized Health Care Education/Training Program | DX: R07.89 Other chest pain (principal); R05.9 Cough, unspecified | CPT/HCPCS: 71046 ==

== ENCOUNTER → 2025-05-22 23:45 | Outpatient (BNV) | payer OTHER, SELFPAY | PROVIDERS: Emergency Provider Emergency Medicine; PCP Internal Medicine; Visit Provider Internal Medicine Cardiovascular Disease | DX: I48.91 Unspecified atrial fibrillation (principal) | CPT/HCPCS: 93010 ==

== ENCOUNTER 2025-07-24 12:40 | Outpatient (REF) | payer OTHER, SELFPAY | END 2025-07-24 12:41 | disposition home or self-care (01) | LOC: HO.LNP 12:40 | PROVIDERS: Visit Provider Nurse Practitioner Family | DX: R19.7 Diarrhea, unspecified (principal) | CPT/HCPCS: 87177; 87209; 87507 ==

== ENCOUNTER 2025-07-26 13:43 | Outpatient (AMB) | payer OTHER, MEDICARE, SELFPAY ==
--- NOTE | 2025-07-26 13:55 | MHC.OFFVIS ---
Vital Signs 07/26/25 14:00 Height 5 ft 11 in Weight 228 lb BMI 31.8 BP 110/58 L Blood Pressure Location Rt brachial Position Sitting Pulse 80 Pulse Source Pulse Oximeter Pulse Oximetry (%) 97 Oxygen Delivery Method Room Air Intake Visit Reasons: 3 mos FUV. Fecal abn. Intake Note: Est pt for mgmt of chronic diarrhea and post-prandial abd bloating. Reminded of labs 07/17. CC: Pt denies any new GI sx or concerns. Does confirm chronic sx persistence. He reports there was some confusion regarding the fiber therapy. Pt did submit stool study but needs to have it redone. 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 Fecal abn.: Details: LAST VISIT: Diarrhea Postprandial abdominal bloating Plan Patient reports incontinence of stool otherwise normal bowel movements. Patient will increase fiber intake. Recommended Metamucil with pre and probiotics. Will rule out malabsorption issues, inflammatory processes, celiac. Will check stool study. Will get records from his last colonoscopy. Will hold off on sending him go colonoscopy at this point unless his symptoms will get worse. Currently accidents couple times a month. Patient will control better with fiber and becoming more regular. Encouraged patient not to hold to have a bowel movement. He will follow-up in the office in 3 months. He will call us if he will have worsening symptoms. Patient is agreeable to plan of care and verbalizes understanding of instructions. He was given the opportunity to ask questions and all questions answered. ? Thank you for allowing me to participate in his care Orders Calprotectin, Fecal Today R15.9 Transglutaminase IgA Today R10.9 Fecal Fat Qualitative Today R19.7 Vitamin D 25-OH (D2 and D3) Today E55.9 Vitamin B12 and Folate Today R19.7 C Reactive Protein Today K58.9 Ova and Parasite Today R19.7 GI Panel Today R19.7 TODAY'S VISIT: Patient is here today for follow-up. Patient reports that he has been feeling better when he was taking fiber tablet with pre and probiotics, however his fiber was switched as he was not able to get it [facility] and he had to get powder. He is taking 1 tbsp daily and he continues to have postprandial diarrhea. Patient also reports that towards the end of the day he has a left lower quadrant abdominal pain and severe bloating. Patient's lab work showed no inflammatory processes. Fecal calprotectin was normal. However labs were unable to run rest of the fecal studies as that sample overfilled the container. New order for GI panel sent. Patient was encouraged to get it done as soon as he is able to take it patient denies melena, hematochezia. Denies dyspepsia, dysphagia or odynophagia FOR[facility]LY [facility], [facility] Medical History HTN (hypertension) Hyperlipidemia Diabetes Surgical History History of colonoscopy Hx of appendectomy Social History Alcohol intake: never Patient Tobacco Use Status: Never used Tobacco Review of Systems Const Denies weight gain and Denies weight loss ENT Reports no additional complaints, Denies dysphagia and Denies odynophagia Card Reports no additional complaints Resp Reports no additional complaints GI Denies abdominal pain, Denies belching, Denies melena, Denies bloating, Denies change in bowel habits, Denies dysphagia, Denies excessive flatus, Denies dyspepsia, Denies heartburn, Denies diarrhea, Reports loose stools, Denies nausea, Denies odynophagia and Denies vomiting Reports no additional complaints Musc Reports no additional complaints Neuro Reports no additional complaints Psych Reports no additional complaints Endo Reports no additional complaints Physical Exam Vital Signs: BMI result Body Mass Index 31.8 Const General: healthy appearing and no acute distress Nutritional Appearance: obese Orientation/consciousness: patient oriented x3 Resp Effort & Inspection: normal respiratory effort, able to speak in complete sentences, no tracheal deviation and symmetric chest movement Auscultation: clear to auscultation bilaterally Cardio Rate: regular rate GI Inspection: Yes normal to inspection, No distended and Yes obesity Palpation (GI): Soft to palpation, not firm, nontender and No hepatosplenomegaly present Auscultation: normal bowel sounds General: Yes no CVA tenderness Back/Spine/Pelvis Back: no CVA tenderness Skin General skin exam: elasticity normal, turgor normal and dry skin Neuro General: patient oriented x3 Psych Appearance: grossly normal Mental Status: mental status grossly normal Assessment & Plan Assessment & Plan (1) Diarrhea: Code(s): R19.7 - Diarrhea, unspecified Qualifiers: Diarrhea type: functional diarrhea Qualified Code(s): K59.1 - Functional diarrhea (2) Postprandial abdominal bloating: Code(s): R14.0 - Abdominal distension (gaseous) (3) IBS (irritable bowel syndrome): Code(s): K58.9 - Irritable bowel syndrome, unspecified Qualifiers: Irritable bowel syndrome type: with diarrhea Qualified Code(s): K58.0 - Irritable bowel syndrome with diarrhea Plan Patient will try to get fiber with pre and probiotics as that was working well for him better. Patient will try to avoid certain dietary triggers. Discussed with him will FODMAP diet. List of food recommended as well as list of food to avoid given to patient. Patient will return in 4 months. Patient was encouraged to call us if he will have any GI concerning symptoms. He is agreeable to this plan and verbalizes understanding of instructions. He was given the opportunity to ask questions and all questions answered. Thank you for allowing me to participate in his care Coding Level of Care Code Est Pt Level 3 (70721) Diagnoses Functional diarrhea K59.1 Diarrhea type: functional diarrhea Postprandial abdominal bloating R14.0 Irritable bowel syndrome with diarrhea K58.0 Irritable bowel syndrome type: with diarrhea Time Spent (min) 25 Comment 15 minutes spent with patient and additional 10 minutes spent reviewing her records
[2025-07-26 14:00] VITALS: BP 110/58; PULSE 80; O2SAT 97; BMI 31.8
--- OUTSIDE RECORDS SUMMARY | 2025-07-26 16:51 | XMS_ITS | Clinical Summary ---
Author Organization [facility] Address [address] [place] [address] Phone Care Team Providers Care Civil Preparedness Training Officer Name Role Phone Physician, Pcp Unknown Primary [...] topic Insurance [employer]ARE Care Teams Civil Preparedness Training Officer Relationship Specialty Start Date End Date Physician, Pcp Unknown PCP - General 01/03/25
== END 2025-07-26 14:16 | disposition home or self-care (01) ==
LOC: HO.HGI 13:44
PROVIDERS: PCP Internal Medicine; Visit Provider Nurse Practitioner Family
DX: K59.1 Functional diarrhea (principal); R14.0 Abdominal distension (gaseous); K58.0 Irritable bowel syndrome with diarrhea
CPT/HCPCS: 99213

== ENCOUNTER → 2025-07-26 13:43 | Outpatient (BNVA) | payer OTHER, SELFPAY | PROVIDERS: PCP Internal Medicine; Visit Provider Nurse Practitioner Family | DX: K58.0 Irritable bowel syndrome with diarrhea (principal); R14.0 Abdominal distension (gaseous) | CPT/HCPCS: 99212 ==